=== PATIENT | male | born 1985 | race Caucasian/White ===

== ENCOUNTER 2019-07-01 13:48 | Emergency (ER) | payer MEDICAID ==
[~2019-07-01] VITALS: Ht 182.9 cm; Wt 91.2 kg
[2019-07-01 14:01] VITALS: BP 142/78
[2019-07-01 14:24] VITALS: BP 142/78
== END 2019-07-01 14:24 | disposition home or self-care (01) ==
LOC: MED 13:48
DX: J06.9 Acute upper respiratory infection, unspecified (principal)
CPT/HCPCS: 87804; 99283